=== PATIENT | female | born 1965 | race African-American/Black ===

== ENCOUNTER 2022-06-20 09:17 | Outpatient (CLI) | payer OTHER | END 2022-06-20 09:18 | disposition home or self-care (01) | LOC: CSHULT 09:17 | PROVIDERS: ATTEND Internal Medicine Gastroenterology | DX: R79.89 Other specified abnormal findings of blood chemistry (principal); K76.0 Fatty (change of) liver, not elsewhere classified | CPT/HCPCS: 76700 ==

== ENCOUNTER 2022-06-20 10:54 | Outpatient (CLI) | payer OTHER | END 2022-06-20 10:55 | disposition home or self-care (01) | LOC: CSHLAB 10:54 | PROVIDERS: ATTEND Internal Medicine Gastroenterology | DX: Z20.822 Contact with and (suspected) exposure to COVID-19 (principal); R79.89 Other specified abnormal findings of blood chemistry; K76.0 Fatty (change of) liver, not elsewhere classified | CPT/HCPCS: 76700; 87811 ==

== ENCOUNTER 2022-06-23 06:11 | Day surgery (SDC) | payer OTHER ==
[2022-06-22 10:24] VITALS: BMI 36.4
[2022-06-23] MEDS ORDERED: Lidocaine 1% MPF 2 ML VIAL ONE (07:38)
[2022-06-23] MEDS ORDERED: PROPOFOL 60 ML ONE (08:45)
[2022-06-23] MEDS ORDERED: Lidocaine 2% MPF 10 ML AMP (For Epidural Use) ONE (08:45)
[2022-06-23] MEDS ORDERED: Glycopyrrolate 0.2 MG/ML 5 ML SYRINGE ONE (08:57)
== END 2022-06-23 10:10 | disposition home or self-care (01) ==
LOC: CSHSDC 06:11
PROVIDERS: ATTEND Internal Medicine Gastroenterology
PROC: 0DBH8ZX Excision of Cecum, Via Natural or Artificial Opening Endoscopic, Diagnostic (ICD-10-PCS; principal; 2022-06-23)
DX: Z12.11 Encounter for screening for malignant neoplasm of colon (principal); K52.9 Noninfective gastroenteritis and colitis, unspecified; K63.5 Polyp of colon; K64.9 Unspecified hemorrhoids; I10 Essential (primary) hypertension; E78.5 Hyperlipidemia, unspecified; E11.9 Type 2 diabetes mellitus without complications; E66.9 Obesity, unspecified; Z68.36 Body mass index [BMI] 36.0-36.9, adult; Z20.822 Contact with and (suspected) exposure to COVID-19
CPT/HCPCS: 36416; 88305; J2704

== ENCOUNTER 2023-06-21 06:57 | Day surgery (SDC) | payer OTHER ==
[2023-06-19 15:10] VITALS: BMI 35.5
[2023-06-19 16:00] LABS: Hemoglobin 14.6 g/dL (12.0-15.5); Mean Corpuscular HGB CONC 32.1 g/dL (32.0-36.0); Mean Corpuscular Hemoglobin 29.6 pg (27.0-33.0); Mean Corpuscular Volume 92.3 fl (81.6-98.3); Platelet Count 300 10x3/uL (150-450); RBC Distribution Width 13.4 % (11.5-14.5); Red Blood Cell (RBC) Count 4.93 10x6/uL (3.90-5.03); White Blood Cell (WBC) Count 6.5 10x3/uL (3.5-10.5)
[2023-06-19 16:31] LABS: Anion Gap 17 mmol/L (10-20); BUN (Urea Nitrogen) 12 mg/dL (9.8-20.1); Calc. Creatinine Clearance 0 mL/min (70-130); Calcium 9.4 mg/dL (7.8-10.44); Carbon Dioxide 23 mmol/L (22-29); Chloride 105 mmol/L (98-107); Estimated GFR 54; Glucose 87 mg/dL (70-105); Potassium 3.9 mmol/L (3.5-5.1); Sodium 141 mmol/L (136-145)
[2023-06-21] MEDS ORDERED: Lidocaine 1% MPF 2 ML VIAL ONE (07:19)
[2023-06-21] MEDS ORDERED: PROPOFOL 20 ML ONE (08:27)
[2023-06-21] MEDS ORDERED: fentaNYL 50 mcg/mL 1 mL Vial ONE ×2 (08:27→09:56)
[2023-06-21] MEDS ORDERED: Midazolam HCl 2 mg/2 ml Vial ONE (08:27)
[2023-06-21] MEDS ORDERED: Ondansetron PF 4 MG/2 ML Vial ONE (08:28)
[2023-06-21] MEDS ORDERED: Dexamethasone 20 MG/5 ML VIAL ONE (08:28)
[2023-06-21] MEDS ORDERED: Lidocaine 1% PF 5 ML VIAL ONE (08:28)
[2023-06-21] MEDS ORDERED: Ketorolac Tromethamine 30 MG/ML VIAL ONE (08:28)
[2023-06-21] MEDS ORDERED: CEFAZOLIN 2 GM VIAL ONE (08:50)
[2023-06-21] MEDS ORDERED: Succinylcholine 200 MG/10 ml SYRINGE FS ONE (08:58)
== END 2023-06-21 11:50 | disposition home or self-care (01) ==
LOC: CSHSDC 06:57
PROVIDERS: ATTEND Obstetrics & Gynecology
PROC: 0U5B8ZZ Destruction of Endometrium, Via Natural or Artificial Opening Endoscopic (ICD-10-PCS; principal; 2023-06-21)
DX: N85.02 Endometrial intraepithelial neoplasia [EIN] (principal); N95.0 Postmenopausal bleeding; I10 Essential (primary) hypertension; E78.5 Hyperlipidemia, unspecified; E11.9 Type 2 diabetes mellitus without complications; K21.9 Gastro-esophageal reflux disease without esophagitis; Z79.82 Long term (current) use of aspirin; Z79.02 Long term (current) use of antithrombotics/antiplatelets; Z79.84 Long term (current) use of oral hypoglycemic drugs; Z79.899 Other long term (current) drug therapy
CPT/HCPCS: 36415; 36416; 80048; 85027; 86850; 86900; 86901; 88305; A4306; J1100; J1885; J2250; J2405; J2704; J3010